=== PATIENT | female | born 1975 | race African-American/Black ===

== ENCOUNTER 2021-08-23 03:38 | Emergency (ER) | payer OTHER ==
[~2021-08-23] VITALS: Ht 154.9 cm; Wt 62.6 kg
[~2021-08-23 03:38] MED LIST: PERMETHRIN5 % EX
[2021-08-23 04:10] VITALS: BP 118/69; TEMP 98.1
== END 2021-08-23 04:10 | disposition home or self-care (01) ==
LOC: ED 03:38
PROC: 09C37ZZ Extirpation of Matter from Right External Auditory Canal, Via Natural or Artificial Opening (ICD-10-PCS; principal; 2021-08-23)
DX: T16.1XXA Foreign body in right ear, initial encounter (principal); X58.XXXA Exposure to other specified factors, initial encounter; Y92.89 Other specified places as the place of occurrence of the external cause
CPT/HCPCS: 99283